=== PATIENT | male | born 1950 | race African-American/Black ===

== ENCOUNTER 2018-12-09 14:55 | Inpatient (IN) | payer OTHER ==
[2018-12-09 20:15] VITALS: BMI 21.9
--- NOTE | 2018-12-09 20:35 | HP ---
COWS - Scale Resting Pulse: 0= [place] 80 or Below Sweatin= No chills or Flushing Restless Observation: 3= Extraneous Movement Pupil Size: 0= Normal to Room Light Bone or Joint Aches: 4=Acute Joint/Muscle Pain Runny Nose/ Eye Tearin= Runny Nose/Eyes GI Upset > 30mins: 0= None Tremor Observation: 1= Tremor [place], Not Seen Yawning Observation: 1= 1-2x During Session Anxiety or Irritability: 1=Feels Anxious/Irritable Goose Flesh Skin: 0=Smooth Skin COWS Score: 12 CIWA Score - Admission Criteria [facility]ASAS Guidelines: Admission for Medically Managed Detox: Requires at least one of the followin. CIWA greater than 12 2. Seizures within the past 24 hours 3. Delirium tremens within the past 24 hours 4. Hallucinations within the past 24 hours 5. Acute intervention needed for co occurring medical disorder 6. Acute intervention needed for co occurring psychiatric disorder 7. Severe withdrawal that cannot be handled at a lower level of care (continued vomiting, continued diarrhea, abnormal vital signs) requiring intravenous medication and/or fluids 8. Admission ROS [facility] Chief Complaint: C/O WORSENING WITHDRAWAL SX'S. SEEKING DETOX Allergies/Adverse Reactions: Allergies Allergy/AdvReac Type Severity Reaction Status Date / Time No Known Allergies Allergy Verified 12/09/18 19:57 History of Present Illness: 68 Y.O. MALE WITH OPIOID DEPENDENCE HERE FOR DETOX. THIS IS CLIENT FIRST ADMISSION HERE. HE WAS REFERRED BY HIS RESIDENTIAL. PRESENTS WITH C/O WITHDRAWAL SX' S. COWS 12. REPORTS LAST DETOX MANY YEARS AGO. HIS DRUG OF CHOICE IS HEROIN. WHICH HE USES DAILY. LAST USE 1 DAY AGO. REPORTS LONGEST CLEAN TIME 30 DAYS. DENIES SI/HI/AVH/ SEIZURE D/O. UNDOMICILED-RESIDENTIAL, UNEMPLOYED, DENIES LEGALS Exam Limitations: No Limitations - Ebola screening Have you traveled outside of the country in the last 21 days: No (N) Have you had contact with anyone from an Ebola affected area: No Do you have a fever: No - Review of Systems Constitutional: Loss of Appetite, Changes in sleep, Unintentional Wgt. Loss EENT: reports: Dental Problems (MISSING TEETH) Respiratory: reports: No Symptoms reported Cardiac: reports: No Symptoms Reported GI: reports: Poor Appetite, Poor Fluid Intake : reports: No Symptoms Reported Musculoskeletal: reports: Joint Pain Integumentary: reports: Dryness Neuro: reports: No Symptoms reported Endocrine: reports: No Symptoms Reported Hematology: reports: No Symptoms Reported Psychiatric: reports: Orientated x3, Anxious Other Systems: Reviewed and Negative Patient History - Patient Medical History Hx Anemia: No Hx Asthma: No Hx Chronic Obstructive Pulmonary Disease (COPD): No Hx Cancer: No Hx Cardiac Disorders: No Hx Congestive Heart Failure: No Hx Hypertension: Yes Hx Hypercholesterolemia: Yes Hx Pacemaker: No HX Cerebrovascular Accident: No Hx Seizures: No Hx Dementia: No Hx Diabetes: No Hx Gastrointestinal Disorders: No Hx Liver Disease: No Hx Genitourinary Disorders: No Hx Sexually Transmitted Disorders: No Hx Renal Disease (ESRD): No Hx Thyroid Disease: No Hx Human Immunodeficiency Virus (HIV): No Hx Hepatitis C: No Hx Depression: No Hx Suicide Attempt: No Hx Bipolar Disorder: No Hx Schizophrenia: No Other Medical History: DENIES - Patient Surgical History Past Surgical History: Yes Other Surgical History: EYE SX FOR ASTIGMATISM Anesthesia Reaction: No - PPD History Previous Implant?: Yes Documented Results: Negative w/o proof Implanted On Prior [facility] Admission?: No PPD to be Administered?: Yes - Smoking Cessation Smoking history: Current every day smoker Have you smoked in the past 12 months: Yes Aproximately how many cigarettes per day: 2 Cigars Per Day: 0 Hx Chewing Tobacco Use: No Initiated information on smoking cessation: Yes 'Breaking Loose' booklet given: 12/09/18 - Substance & Tx. History Hx Alcohol Use: Yes Hx Substance Use: Yes Substance Use Type: Heroin Hx Substance Use Treatment: Yes ( [facility]) - Substances abused Heroin Substance route: Inhalation Frequency: Daily Amount used: 2 BAGS Age of first use: 18 Date of last use: 12/08/18 Admission Physical Exam BHS - Vital Signs Vital Signs: Vital Signs - 24 hr 12/09/18 19:52 Temperature 97.0 F L Pulse Rate 50 L Respiratory 18 Rate Blood Pressure 139/70 - Physical General Appearance: Yes: Appropriately Dressed, Tremorous (FLET), Anxious HEENTM: Yes: EOMI, Normocephalic, Normal Voice, HALIMA, Pharynx Normal, Other ( POOR DENTITION, MISSIN MAJORITY OF TEETH WATERY EYES) Respiratory: Yes: Chest Non-Tender, Lungs Clear, Normal Breath Sounds, No Respiratory Distress, No Accessory Muscle Use Neck: Yes: No masses,lesions,Nodules, Supple, Trachea in good position Breast: Yes: Breast Exam Deferred Cardiology: Yes: Regular Rhythm, Regular Rate, S1, S2 Abdominal: Yes: Normal Bowel Sounds, Non Tender, Soft Genitourinary: Yes: Within Normal Limits Back: Yes: Normal Inspection Musculoskeletal: Yes: Gait Steady, Joint Stiffness Extremities: Yes: Normal Capillary Refill, Normal Range of Motion, Non-Tender, Tremors (FELT) Neurological: Yes: Fully Oriented, Alert, Motor Strength 5/5 Integumentary: Yes: Dry (FLAKY), Warm Lymphatic: Yes: Within Normal Limits - Diagnostic (1) Opioid dependence with withdrawal Current Visit: Yes Status: Acute (2) Nicotine dependence Current Visit: Yes Status: Acute (3) HTN (hypertension) Current Visit: Yes Status: Acute (4) Edentulous Current Visit: Yes Status: Acute (5) HLD (hyperlipidemia) Current Visit: Yes Status: Acute (6) At risk for dehydration due to poor fluid intake Current Visit: Yes Status: Acute Cleared for Admission [facility] - Detox or Rehab [facility] Level of Care: Medically Managed Detox Regimen/Protocol: Methadone Claeared for Rehab Admission: No Urine Drug Screen - Test Device Lot number: [id number] Expiration date: 07/25/20 - Control Is test valid?: Yes - Results Drug screen NEGATIVE: No Urine drug screen results: MOP-Opiates Inpatient Rehab Admission - Rehab Decision to Admit Inpatient rehab admission?: No
[2018-12-09] MEDS ORDERED: ACETAMINOPHEN 325 MG TABLET (FP) PO PRN ×2 (20:44)
[2018-12-09] MEDS ORDERED: IBUPROFEN 400 MG TABLET (FP) PO PRN (20:44)
[2018-12-09] MEDS ORDERED: ONDANSETRON *ODT* 4 MG TABLET SL PRN (20:44)
[2018-12-09] MEDS ORDERED: guaiFENesin 200 MG/10 ML 10 ML UNIT-DOSE CUPS PO PRN (20:44)
[2018-12-09] MEDS ORDERED: BISMUTH SUBSALICYLATE 524 MG/30 ML UD PO PRN (20:44)
[2018-12-09] MEDS ORDERED: cloNIDine HCL 0.1 MG TABLET PO PRN (20:44)
[2018-12-09] MEDS ORDERED: P-EPHED 60MG/TRIPROLIDI 2.5MG TABLET PO PRN (20:44)
[2018-12-09] MEDS ORDERED: MAGNESIUM HYDROX 2400MG/30ML ORAL SUSPENSION 30 ML CUP PO PRN (20:44)
[2018-12-09] MEDS ORDERED: METHOCARBAMOL 500 MG TABLET PO PRN (20:44)
[2018-12-09] MEDS ORDERED: DICYCLOMINE HCL 10 MG CAPSULE PO PRN (20:44)
[2018-12-09] MEDS ORDERED: NICOTINE POLACRILEX 2 MG GUM BUC PRN (20:44)
[2018-12-09] MEDS ORDERED: MAG HYDROX/AL HYDROX/SIMETH 30 ML UNIT-DOSE CUP PO PRN (20:44)
[2018-12-09] MEDS ORDERED: MAGNESIUM CITRATE 300 ML BOTTLE PO PRN (20:44)
[2018-12-09] MEDS ORDERED: MENTHOL/PHENOL 1 EACH UD MM PRN (20:44)
[2018-12-09] MEDS ORDERED: NALOXONE HCL 0.4 MG/ML VIAL IVPUSH PRN (20:44)
[2018-12-09] MEDS ORDERED: METHADONE HCL 10 MG TABLET (FOR DETOX USE ONLY) PO ONE (23:00)
[2018-12-09] MEDS: GABAPENTIN 100 MG CAPSULE (FP) PO SCH (23:17)
[2018-12-09] MEDS: ATORVASTATIN CA 20 MG TABLET (FP) PO SCH (23:17)
[2018-12-09] MEDS: THIAMINE HCL 100 MG TABLET (FP) PO SCH (23:17)
[2018-12-09] MEDS: METOPROLOL TARTRATE 25 MG TABLET (FP) PO SCH (23:17)
[2018-12-09] MEDS: MELATONIN 5 MG TABLETS PO PRN (23:17)
[2018-12-10] MEDS: hydrOXYzine PAMOATE 25 MG CAPSULE (FP) PO PRN (01:14)
[2018-12-10] MEDS: GABAPENTIN 100 MG CAPSULE (FP) PO SCH ×3 (07:37→22:21)
[2018-12-10] MEDS ORDERED: METHADONE HCL 5 MG TABLET (FOR DETOX USE ONLY) PO ONE (10:00)
[2018-12-10] MEDS: NICOTINE 14 MG/24 HOURS TOPICAL PATCH TD SCH (10:12)
[2018-12-10] MEDS: PRENATAL VITAMINS W/ FOLIC ACID TABLET (FP) PO SCH (10:12)
[2018-12-10] MEDS: ASPIRIN 81 MG CHEWABLE TABLETS PO SCH (10:13)
[2018-12-10] MEDS: amLODIPine BESYLATE 10 MG TABLET (FP) PO SCH (10:13)
[2018-12-10] MEDS: METOPROLOL TARTRATE 25 MG TABLET (FP) PO SCH ×2 (10:13→22:21)
--- NOTE | 2018-12-10 12:24 | EKG ---
Test Reason : Blood Pressure : / mmHG Vent. Rate : 053 BPM Atrial Rate : 053 BPM P-R Int : 184 ms QRS Dur : 100 ms QT Int : 446 ms P-R-T Axes : 059 -09 020 degrees QTc Int : 418 ms SINUS BRADYCARDIA EARLY REPOLARIZATION OTHERWISE NORMAL ECG WHEN COMPARED WITH ECG OF 09-DEC-2018 21:06, PREMATURE SUPRAVENTRICULAR COMPLEXES ARE NO LONGER PRESENT ST NO LONGER DEPRESSED IN INFERIOR LEADS Confirmed by MIKAYLA PERAZA, NIESHA ([id number]) on 12/10/2018 12:24:23 PM Referred By: STEFFEN Confirmed By:NIESHA DEGROOT MD
--- NOTE | 2018-12-10 12:25 | EKG ---
Test Reason : Blood Pressure : / mmHG Vent. Rate : 056 BPM Atrial Rate : 056 BPM P-R Int : 152 ms QRS Dur : 082 ms QT Int : 418 ms P-R-T Axes : 033 -32 003 degrees QTc Int : 403 ms POOR DATA QUALITY, INTERPRETATION MAY BE ADVERSELY AFFECTED SINUS BRADYCARDIA WITH PREMATURE SUPRAVENTRICULAR COMPLEXES LEFT AXIS DEVIATION ST ELEVATION CONSIDER ANTEROLATERAL INJURY OR ACUTE INFARCT ACUTE PA / STEMI ABNORMAL ECG NO PREVIOUS ECGS AVAILABLE Confirmed by MIKAYLA PERAZA, NIESHA ([id number]) on 12/10/2018 12:25:03 PM Referred By: Confirmed By:NIESHA DEGROOT MD
[2018-12-10 13:06] LABS: ALBUMIN 3.7 g/dl (3.4-5.0); ALK PHOS 85 U/L (45-117); ANION GAP 5 MMOL/L (8-16); BILIRUBIN,TOTAL 0.5 mg/dL (0.2-1); BLOOD UREA NITROGEN 23 mg/dL (7-18); CHLORIDE 101 mmol/L (98-107); CO2 31 mmol/L (21-32); CREATININE 1.5 mg/dL (0.55-1.3); GLUCOSE,RANDOM 124 mg/dL (74-106); POTASSIUM 4.4 mmol/L (3.5-5.1); SGOT/AST 18 U/L (15-37); SGPT/ALT 20 U/L (13-61); SODIUM 136 mmol/L (136-145); TOT PROT 7.4 g/dl (6.4-8.2)
[2018-12-10 13:30] LABS: MCH 27.7 pg (25.7-33.7); MCHC 33.3 g/dl (32.0-35.9); MEAN CELL VOLUME 83.3 fl (80-96); MEAN PLT VOLUME 7.9 fl (7.5-11.1); PLATELET COUNT 288 K/MM3 (134-434); RBC 3.97 M/mm3 (4.00-5.60); RDW 17.2 % (11.9-15.9); WHITE BLOOD COUNT 6.9 K/mm3 (4.0-10.0)
--- NOTE | 2018-12-10 14:04 | PN ---
BHS COWS - Scale Resting Pulse: 0= [place] 80 or Below Sweatin= Chills/Flushing Restless Observation: 1= Difficult to Sit Still Pupil Size: 1= Pupils >than Normal Bone or Joint Aches: 1= Mild Discomfort Runny Nose/ Eye Tearin= Nasal Congestion GI Upset > 30mins: 1= Stomach Cramp Tremor Observation of Outstretched Hands: 1= Tremor [place], Not Seen Yawning Observation: 2= >3x During Session Anxiety or Irritability: 2=Irritable/Anxious Goose Flesh Skin: 0=Smooth Skin COWS Score: 11 BHS Progress Note (SOAP) Subjective: patient is optimistic about aftercare at [facility] 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 [facility] Objective: 12/10/18 14:06 Vital Signs Temperature 98.7 F 12/10/18 13:18 Pulse Rate 59 L 12/10/18 13:18 Respiratory Rate 18 12/10/18 13:18 Blood Pressure 102/59 L 12/10/18 13:18 O2 Sat by Pulse Oximetry (%) Laboratory Last Values WBC 6.9 K/mm3 (4.0-10.0) 12/10/18 07:00 RBC 3.97 M/mm3 (4.00-5.60) L 12/10/18 07:00 Hgb 11.0 GM/dL (11.7-16.9) L 12/10/18 07:00 Hct 33.0 % (35.4-49) L 12/10/18 07:00 MCV 83.3 fl (80-96) 12/10/18 07:00 MCH 27.7 pg (25.7-33.7) 12/10/18 07:00 MCHC 33.3 g/dl (32.0-35.9) 12/10/18 07:00 RDW 17.2 % (11.9-15.9) H 12/10/18 07:00 Plt Count 288 K/MM3 (134-434) 12/10/18 07:00 MPV 7.9 fl (7.5-11.1) 12/10/18 07:00 Sodium 136 mmol/L (136-145) 12/10/18 07:00 Potassium 4.4 mmol/L (3.5-5.1) 12/10/18 07:00 Chloride 101 mmol/L (98-107) 12/10/18 07:00 Carbon Dioxide 31 mmol/L (21-32) 12/10/18 07:00 Anion Gap 5 MMOL/L (8-16) L 12/10/18 07:00 BUN 23 mg/dL (7-18) H 12/10/18 07:00 Creatinine 1.5 mg/dL (0.55-1.3) H 12/10/18 07:00 Creat Clearance w eGFR 46.27 (>60) 12/10/18 07:00 Random Glucose 124 mg/dL (74-106) H 12/10/18 07:00 Calcium 9.0 mg/dL (8.5-10.1) 12/10/18 07:00 Total Bilirubin 0.5 mg/dL (0.2-1) 12/10/18 07:00 AST 18 U/L (15-37) 12/10/18 07:00 ALT 20 U/L (13-61) 12/10/18 07:00 Alkaline Phosphatase 85 U/L (45-117) 12/10/18 07:00 Total Protein 7.4 g/dl (6.4-8.2) 12/10/18 07:00 Albumin 3.7 g/dl (3.4-5.0) 12/10/18 07:00 lab noted Assessment: 12/10/18 14:07 opiate withdrawal sx Plan: continue detox
[2018-12-10] MEDS: THIAMINE HCL 100 MG TABLET (FP) PO SCH (22:21)
[2018-12-10] MEDS: ATORVASTATIN CA 20 MG TABLET (FP) PO SCH (22:21)
[2018-12-10] MEDS: MELATONIN 5 MG TABLETS PO PRN (22:22)
[2018-12-11] MEDS: hydrOXYzine PAMOATE 25 MG CAPSULE (FP) PO PRN (02:08)
[2018-12-11] MEDS: GABAPENTIN 100 MG CAPSULE (FP) PO SCH ×3 (07:27→22:24)
[2018-12-11] MEDS ORDERED: METHADONE HCL 10 MG TABLET (FOR DETOX USE ONLY) PO ONE (10:00)
[2018-12-11] MEDS: METOPROLOL TARTRATE 25 MG TABLET (FP) PO SCH ×2 (10:21→22:24)
[2018-12-11] MEDS: ASPIRIN 81 MG CHEWABLE TABLETS PO SCH (10:21)
[2018-12-11] MEDS: amLODIPine BESYLATE 10 MG TABLET (FP) PO SCH (10:21)
[2018-12-11] MEDS: PRENATAL VITAMINS W/ FOLIC ACID TABLET (FP) PO SCH (10:21)
[2018-12-11] MEDS: NICOTINE 14 MG/24 HOURS TOPICAL PATCH TD SCH (10:23)
--- NOTE | 2018-12-11 10:53 | PN ---
BHS COWS - Scale Resting Pulse: 0= [place] 80 or Below Sweatin= Chills/Flushing Restless Observation: 0= Sits Still Pupil Size: 0= Normal to Room Light Bone or Joint Aches: 1= Mild Discomfort Runny Nose/ Eye Tearin= None GI Upset > 30mins: 1= Stomach Cramp Tremor Observation of Outstretched Hands: 1= Tremor [place], Not Seen Yawning Observation: 1= 1-2x During Session Anxiety or Irritability: 1=Feels Anxious/Irritable Goose Flesh Skin: 0=Smooth Skin COWS Score: 6 BHS Progress Note (SOAP) Subjective: feeling better today less body aches Objective: 12/11/18 10:55 Vital Signs Temperature 99.1 F 12/11/18 09:23 Pulse Rate 74 12/11/18 09:23 Respiratory Rate 18 12/11/18 09:23 Blood Pressure 142/69 12/11/18 09:23 O2 Sat by Pulse Oximetry (%) Laboratory Last Values WBC 6.9 K/mm3 (4.0-10.0) 12/10/18 07:00 RBC 3.97 M/mm3 (4.00-5.60) L 12/10/18 07:00 Hgb 11.0 GM/dL (11.7-16.9) L 12/10/18 07:00 Hct 33.0 % (35.4-49) L 12/10/18 07:00 MCV 83.3 fl (80-96) 12/10/18 07:00 MCH 27.7 pg (25.7-33.7) 12/10/18 07:00 MCHC 33.3 g/dl (32.0-35.9) 12/10/18 07:00 RDW 17.2 % (11.9-15.9) H 12/10/18 07:00 Plt Count 288 K/MM3 (134-434) 12/10/18 07:00 MPV 7.9 fl (7.5-11.1) 12/10/18 07:00 Sodium 136 mmol/L (136-145) 12/10/18 07:00 Potassium 4.4 mmol/L (3.5-5.1) 12/10/18 07:00 Chloride 101 mmol/L (98-107) 12/10/18 07:00 Carbon Dioxide 31 mmol/L (21-32) 12/10/18 07:00 Anion Gap 5 MMOL/L (8-16) L 12/10/18 07:00 BUN 23 mg/dL (7-18) H 12/10/18 07:00 Creatinine 1.5 mg/dL (0.55-1.3) H 12/10/18 07:00 Creat Clearance w eGFR 46.27 (>60) 12/10/18 07:00 Random Glucose 124 mg/dL (74-106) H 12/10/18 07:00 Calcium 9.0 mg/dL (8.5-10.1) 12/10/18 07:00 Total Bilirubin 0.5 mg/dL (0.2-1) 12/10/18 07:00 AST 18 U/L (15-37) 12/10/18 07:00 ALT 20 U/L (13-61) 12/10/18 07:00 Alkaline Phosphatase 85 U/L (45-117) 12/10/18 07:00 Total Protein 7.4 g/dl (6.4-8.2) 12/10/18 07:00 Albumin 3.7 g/dl (3.4-5.0) 12/10/18 07:00 RPR Titer Nonreactive (NONREACTIVE) 12/10/18 07:00 lab noted Assessment: 12/11/18 10:56 mild withdrawal sx Plan: continue detox
[2018-12-11] MEDS: ATORVASTATIN CA 20 MG TABLET (FP) PO SCH (22:24)
[2018-12-11] MEDS: THIAMINE HCL 100 MG TABLET (FP) PO SCH (22:24)
[2018-12-12 01:41] LABS: PH,URINE 5.5 (5.0-8.0); URINE APPEARANCE CLEAR; URINE BILIRUBIN NEGATIVE (NEGATIVE); URINE COLOR YELLOW; URINE GLUCOSE (UA) NEGATIVE (NEGATIVE); URINE KETONE TRACE (NEGATIVE); URINE LEUK ESTERASE NEGATIVE (NEGATIVE); URINE NITRITE NEGATIVE (NEGATIVE); URINE PROTEIN NEGATIVE (NEGATIVE); URINE UROBILINOGEN 0.2 mg/dL (0.2-1.0)
[2018-12-12] MEDS: GABAPENTIN 100 MG CAPSULE (FP) PO SCH (05:20)
[2018-12-12] MEDS ORDERED: METHADONE HCL 5 MG TABLET (FOR DETOX USE ONLY) PO ONE (06:00)
[2018-12-12] MEDS: METOPROLOL TARTRATE 25 MG TABLET (FP) PO SCH (10:31)
[2018-12-12] MEDS: amLODIPine BESYLATE 10 MG TABLET (FP) PO SCH (10:31)
[2018-12-12] MEDS: PRENATAL VITAMINS W/ FOLIC ACID TABLET (FP) PO SCH (10:31)
[2018-12-12] MEDS: NICOTINE 14 MG/24 HOURS TOPICAL PATCH TD SCH (10:32)
[2018-12-12] MEDS: ASPIRIN 81 MG CHEWABLE TABLETS PO SCH (10:32)
[2018-12-12 13:14] VITALS: BP 134/66; PULSE 65; TEMP 96.6
--- NOTE | 2018-12-12 14:51 | DS ---
[facility] Detox Discharge Summary Admission Date: 12/09/18 Discharge Date: 12/12/18 - History Present History: Opioid Dependence Additional Comments: PATIENT GOING TO OBTAIN HOUSING ON HIS OWN FOR TIME BEING. PATIENT ADVISED TO CONSIDER LOCAL 12-STEP / NA OUTPATIENT SUPPORT GROUPS FOR AFTERCARE. PATIENT VERBALIZED UNDERSTANDING OF RECOMMENDATION. PATIENT DECLINED OFFER OF MEDICATION PRESCRIPTION FOR HOME MEDICATION AT TIME OF DISCHARGE FROM DETOX, NOTING THAT HE CURRENTLY HAS ADEQUATE SUPPLIES OF ALL PRESCRIBED HOME MEDICATIONS WITH HIS BELONGINGS. PATIENT WAS DISCHARGED FROM DETOX UNIT IN STABLE MEDICAL CONDITION. Pertinent Past History: HTN, Hypercholesterolemia, Nicotine Dependence, Edentulous, - Physical Exam Results Vital Signs: Vital Signs Temperature 96.6 F L 12/12/18 13:12 Pulse Rate 65 12/12/18 13:12 Respiratory Rate 18 12/12/18 13:12 Blood Pressure 134/66 12/12/18 13:12 O2 Sat by Pulse Oximetry (%) Pertinent Admission Physical Exam Findings: WITHDRAWAL SYMPTOMS. Laboratory Tests 12/10/18 12/10/18 12/10/18 07:00 07:00 07:00 WBC 6.9 RBC 3.97 L Hgb 11.0 L Hct 33.0 L MCV 83.3 MCH 27.7 MCHC 33.3 RDW 17.2 H Plt Count 288 MPV 7.9 Sodium 136 Potassium 4.4 Chloride 101 Carbon Dioxide 31 Anion Gap 5 L BUN 23 H Creatinine 1.5 H Creat Clearance w eGFR 46.27 Random Glucose 124 H Calcium 9.0 Total Bilirubin 0.5 AST 18 ALT 20 Alkaline Phosphatase 85 Total Protein 7.4 Albumin 3.7 Urine Color Urine Appearance Urine pH Ur Specific [place] Urine Protein Urine Glucose (UA) Urine Ketones Urine Blood Urine Nitrite Urine Bilirubin Urine Urobilinogen Ur Leukocyte Esterase RPR Titer Nonreactive 12/11/18 16:05 WBC RBC Hgb Hct MCV MCH MCHC RDW Plt Count MPV Sodium Potassium Chloride Carbon Dioxide Anion Gap BUN Creatinine Creat Clearance w eGFR Random Glucose Calcium Total Bilirubin AST ALT Alkaline Phosphatase Total Protein Albumin Urine Color Yellow Urine Appearance Clear Urine pH 5.5 Ur Specific [place] 1.022 Urine Protein Negative Urine Glucose (UA) Negative Urine Ketones Trace H Urine Blood Negative Urine Nitrite Negative Urine Bilirubin Negative Urine Urobilinogen 0.2 Ur Leukocyte Esterase Negative RPR Titer LABS NOTED. - Treatment Hospital Course: Detox Protocol Followed, Detoxed Safely, Responded well, Discharged Condition Good Patient has Accepted a Rehab Referral to: PATIENT DECLINED; ADVISED TO CONSIDER LOCAL 12-STEP/NA OP SUPPORT GROUPS. - Medication Discharge Medications: Ambulatory Orders Aspirin 81 mg PO DAILY 12/09/18 Atorvastatin Ca [Lipitor] 20 mg PO HS 12/09/18 Gabapentin 200 mg PO TID 12/09/18 Melatonin 10 mg PO HS 12/09/18 Tramadol HCl 50 mg PO PRN PRN 12/09/18 Amlodipine Besylate 10 mg PO DAILY #30 tablet 12/11/18 Metoprolol Tartrate [Lopressor -] 25 mg PO BID #60 tablet 12/11/18 - Diagnosis (1) At risk for dehydration due to poor fluid intake Current Visit: Yes Status: Acute (2) Edentulous Current Visit: Yes Status: Acute (3) HLD (hyperlipidemia) Current Visit: Yes Status: Chronic Qualifiers: Hyperlipidemia type: unspecified Qualified Code(s): E78.5 - Hyperlipidemia , unspecified (4) HTN (hypertension) Current Visit: Yes Status: Acute Qualifiers: Hypertension type: unspecified Qualified Code(s): I10 - Essential (primary ) hypertension (5) Nicotine dependence Current Visit: Yes Status: Acute Qualifiers: Nicotine product type: cigarettes Substance use status: uncomplicated Qualified Code(s): F17.210 - Nicotine dependence, cigarettes, uncomplicated (6) Opioid dependence with withdrawal Current Visit: Yes Status: Acute - AMA Did Patient Leave Against Medical Advice: No
== END 2018-12-12 14:50 | disposition home or self-care (01) | DRG 773 ==
LOC: YASAS 14:55 → Y3N 21:29
PROVIDERS: ADMIT Surgery; ATTEND Surgery
PROC: HZ2ZZZZ Detoxification Services for Substance Abuse Treatment (ICD-10-PCS; principal; 2018-12-09)
DX: F11.23 Opioid dependence with withdrawal (principal); F17.213 Nicotine dependence, cigarettes, with withdrawal; I10 Essential (primary) hypertension; E78.5 Hyperlipidemia, unspecified; R63.8 Other symptoms and signs concerning food and fluid intake; K08.20 Unspecified atrophy of edentulous alveolar ridge
CPT/HCPCS: 36415; 80053; 81003; 85027; 86593; 93005; 93010